=== PATIENT | female | born 1965 | race Caucasian/White ===

== ENCOUNTER → 2021-01-18 08:32 | Outpatient (CLI) | payer OTHER, SELFPAY ==
--- NOTE | ~2021-01-18 | XR_ITS ---
XR foot RT min 3V DATE: 01/18/2021 08:59 INDICATION: Right foot pain TECHNIQUE: 4 views COMPARISON: None FINDINGS: Plantar calcaneal enthesopathy. 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 No fracture, dislocation, periosteal reaction or bone destruction. 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 [employer]
== END ==
PROVIDERS: PCP Physician Assistant; Visit Provider Physician Assistant
DX: M79.671 Pain in right foot (principal); M77.31 Calcaneal spur, right foot; M19.071 Primary osteoarthritis, right ankle and foot
CPT/HCPCS: 73630

== ENCOUNTER 2022-05-28 01:28 | Day surgery (SDC) | payer BC, SELFPAY ==
[2022-05-16 12:41] VITALS: BMI 24.1
--- NOTE | 2022-05-27 17:11 | PM.HPGS ---
History of Present Illness History of Present Illness Consent: Risks, benefits, and alternatives have been discussed and questions answered. Patient agrees to proceed with procedure. Chief complaint: neoplasm screening Narrative: Stacie Tsang is a 56 year old female referred for colon cancer screening. Review of Systems Review of Systems: All systems reviewed & are unremarkable except as noted in HPI and below PMFSH Family History Family History Mother Hyperlipidemia Heart disease Kidney failure Liver disease Father Hyperlipidemia Heart disease Kidney failure Liver disease Social History Social History Smoking status: Never smoker Alcohol intake: current Drinks per week: 3 Alcohol use details: occasional glass of wine Substance use: never Substance use type: does not use Living arrangements: with family Additional living arrangements comments: spouse Occupation/Education: occupation Gender identity (if verbalized by the patient): Female Sexual Orientation (if Verbalized by the Patient): Straight or Heterosexual Spiritual care concerns: No Meds Home Medications and Allergies Home Medications Medication Instructions Recorded Confirmed Type clobetasol 0.05 % topical ointment 1 applic topical QHS #30 grams 04/25/22 05/28/22 Rx loratadine 10 mg tablet (Claritin) 10 mg PO DAILY 05/16/22 05/28/22 History multivitamin with minerals-folic 1 tablet PO DAILY 05/16/22 05/28/22 History acid 0.4 mg tablet Allergies Allergy/AdvReac Type Severity Reaction Status Date / Time Penicillins Allergy Severe Swelling Verified 05/28/22 06:52 of Lip/Tongue/Throat Exam Const: General: alert Orientation/consciousness: patient oriented x3 Resp: Auscultation: clear to auscultation bilaterally Cardio: Rhythm: regular rhythm GI: GI Palp: Yes Soft to palpation and No Tenderness to palpation present (GI) Neuro: General: patient oriented x3 Assessment and Plan Assessment and plan (1) Colon cancer screening: Code(s): Z12.11 - Encounter for screening for malignant neoplasm of colon Status: Acute Assessment and Plan: Colonoscopy with possible biopsy or polypectomy or cautery or injection of substances.
[2022-05-28 06:53] VITALS: BP 122/63; PULSE 88; RESP 18; TEMP 36.1; O2SAT 100; BMI 22.1
[2022-05-28] MEDS: LACTATED RINGERS 1,000 ML 150 ML IV CONT (07:06)
--- NOTE | 2022-05-28 07:50 | WPDANESEPPF ---
Anes - Initial Pre Proc Eval Procedure: Operation Date: 05/28/22 08:00 Proposed Procedures p Screening Colonoscopy - Noah Cantu MD Date/Time: 05/28/22 07:50 Surgeon: Noah Cantu MD Pre Op Diagnosis: neoplasm screening Patient Data Age: 56 Gender: F Height: 1.63 m Weight: 58.7 kg Last Vital Signs Temp 97.0 F L 05/28/22 06:53 Pulse 88 05/28/22 06:53 Resp 18 05/28/22 06:53 BP 122/63 05/28/22 06:53 Pulse Ox 100 05/28/22 06:53 O2 Del Method Room Air 05/28/22 06:53 Allergies Allergy/AdvReac Type Severity Reaction Status Date / Time Penicillins Allergy Severe Swelling Verified 05/28/22 06:52 of Lip/Tongue/Throat Home Medications Medication Instructions Recorded Confirmed Type clobetasol 0.05 % topical ointment 1 applic topical QHS #30 grams 04/25/22 05/28/22 Rx loratadine 10 mg tablet (Claritin) 10 mg PO DAILY 05/16/22 05/28/22 History multivitamin with minerals-folic 1 tablet PO DAILY 05/16/22 05/28/22 History acid 0.4 mg tablet Patient hx anesthesia problems: none Family hx anesthesia problems: none Results Review: All pre-operative results and documents have been reviewed as part of the pre-operative evaluation. [facility] Family History Family History Mother Hyperlipidemia Heart disease Kidney failure Liver disease Father Hyperlipidemia Heart disease Kidney failure Liver disease Social History Social History Smoking status: Never smoker Alcohol intake: current Drinks per week: 3 Alcohol use details: occasional glass of wine Substance use: never Substance use type: does not use Living arrangements: with family Additional living arrangements comments: spouse Occupation/Education: occupation Gender identity (if verbalized by the patient): Female Sexual Orientation (if Verbalized by the Patient): Straight or Heterosexual Spiritual care concerns: No Anes - Eval Final PreProcedure Day of Procedure 05/28/22 07:50 Patient weight: normal Heart: regular rate and rhythm Lungs: clear to auscultation Airway: Mallampati scale class II Neurological: alert and oriented Last oral intake: >/= 8 hours ASA classification: I Emergent: no Anesthetic plan: proceed Anesthesia type and monitoring: general GIVS and standard monitoring Results Review: All pre-operative results and documents have been reviewed as part of the pre-operative evaluation. Informed Consent: The patient's anesthetic plan and its attendant risks and benefits were discussed with the patient/family/POA. Questions were solicited and answers provided to the satisfaction of the patient/family/POA.
[2022-05-28 08:16] VITALS: BP 136/78; PULSE 74; RESP 20; O2SAT 100
[2022-05-28 08:26] VITALS: BP 130/80; PULSE 71; RESP 17; O2SAT 100
[2022-05-28 08:36] VITALS: BP 124/77; PULSE 72; RESP 18; O2SAT 100
== END 2022-05-28 08:46 | disposition home or self-care (01) ==
PROVIDERS: PCP Physician Assistant; Visit Provider Internal Medicine Gastroenterology
PROC: 0DJD8ZZ Inspection of Lower Intestinal Tract, Via Natural or Artificial Opening Endoscopic (ICD-10-PCS; CPT 45378; principal; 2022-05-28 08:00)
DX: Z12.11 Encounter for screening for malignant neoplasm of colon (principal); Z80.0 Family history of malignant neoplasm of digestive organs; Z83.71 Family history of colonic polyps
CPT/HCPCS: 45378; J2704; J7120